=== PATIENT | female | born 1965 | race Asian ===

== ENCOUNTER → 2021-06-06 | Outpatient (CLI) | payer OTHER | LOC: SJCVCIMAG 10:51 | PROVIDERS: ATTEND Internal Medicine Cardiovascular Disease | DX: I34.0 Nonrheumatic mitral (valve) insufficiency (principal); I48.91 Unspecified atrial fibrillation; I10 Essential (primary) hypertension; E78.5 Hyperlipidemia, unspecified ==

== ENCOUNTER → 2021-09-26 | Outpatient (CLI) | payer OTHER ==
[~2021-09-26] MED LIST: ASA81BEC PO; FAMOTIDINE 40 M40 M1 PO; FLECAINIDE ACET50 M1 PO; LIPITOR20 MG PO; NORVASC5 MG PO; TOPROL XL25 MG PO; XARELTO20 MG PO
[2021-09-26 09:34] LABS: ABSOLUTE NEUTROPHILS 2.7 thou/uL (1.4-8.2); BASOPHILS 0.9 % (0.0-2.0); EOSINOPHILS 2.9 % (0.0-3.0); HEMATOCRIT 38.6 % (37.0-47.0); HEMOGLOBIN 12.8 gm/dL (12.0-15.0); LYMPHOCYTES 30.3 % (24.0-44.0); MCH 29.4 pg (26.0-34.0); MCHC 33.3 g/dL (28.0-37.0); MCV 88.2 fL (80.0-100.0); MONOCYTES 6.3 % (1.0-8.0); PLATELET COUNT 248 thou/uL (150-400); POLYS 59.6 % (36.0-66.0); RBC 4.37 mil/uL (4.20-5.00); RDW 14.5 % (10.5-14.5); WBC 4.4 thou/uL (4.0-11.0)
[2021-09-26 09:54] LABS: CALCIUM 9.1 mg/dL (8.5-10.1); CREATININE 0.9 mg/dL (0.6-1.0); POTASSIUM 4.5 mmol/L (3.5-5.1); TOTAL BILIRUBIN 0.6 mg/dL (0.2-1.0); TOTAL PROTEIN 7.1 g/dL (6.4-8.2)
== END ==
LOC: CAT
PROVIDERS: ATTEND Internal Medicine Cardiovascular Disease
DX: I48.91 Unspecified atrial fibrillation (principal); Z79.1 Long term (current) use of non-steroidal anti-inflammatories (NSAID)

== ENCOUNTER 2021-09-28 06:40 | Observation (INO) | payer OTHER ==
[~2021-09-28] VITALS: Ht 154.9 cm; Wt 76.7 kg
[2021-09-28 07:30] VITALS: BP 147/72
[2021-09-28 07:32] LABS: ABSOLUTE NEUTROPHILS 2.7 thou/uL (1.4-8.2); BASOPHILS 0.5 % (0.0-2.0); EOSINOPHILS 3.2 % (0.0-3.0); HEMATOCRIT 38.8 % (37.0-47.0); HEMOGLOBIN 12.7 gm/dL (12.0-15.0); LYMPHOCYTES 29.3 % (24.0-44.0); MCH 29.1 pg (26.0-34.0); MCHC 32.7 g/dL (28.0-37.0); MCV 88.9 fL (80.0-100.0); MONOCYTES 5.8 % (1.0-8.0); PLATELET COUNT 232 thou/uL (150-400); POLYS 61.2 % (36.0-66.0); RBC 4.36 mil/uL (4.20-5.00); RDW 14.3 % (10.5-14.5); WBC 4.4 thou/uL (4.0-11.0)
[2021-09-28] MEDS ORDERED: NORVASC5 MG PO (07:36)
[2021-09-28] MEDS ORDERED: LIPITOR20 MG PO (07:37)
[2021-09-28] MEDS ORDERED: ASA81BEC PO (07:37)
[2021-09-28] MEDS ORDERED: FAMOTIDINE 40 M40 M1 PO (07:38)
[2021-09-28] MEDS ORDERED: FLECAINIDE ACET50 M1 PO (07:38)
[2021-09-28] MEDS ORDERED: TOPROL XL25 MG PO (07:39)
[2021-09-28] MEDS ORDERED: XARELTO20 MG PO (07:40)
[2021-09-28 07:49] LABS: CALCIUM 9.1 mg/dL (8.5-10.1); CREATININE 0.9 mg/dL (0.6-1.0); POTASSIUM 4.3 mmol/L (3.5-5.1)
[2021-09-28 07:53] LABS: ALBUMIN 3.8 g/dL (3.4-5.0); TOTAL BILIRUBIN 0.7 mg/dL (0.2-1.0); TOTAL PROTEIN 6.9 g/dL (6.4-8.2)
[2021-09-28 08:03] LABS: APTT 26.8 Seconds (24.5-32.8)
[2021-09-28 14:55] VITALS: BP 136/70
[2021-09-28 15:15] VITALS: BP 122/71
[2021-09-28 16:00] VITALS: BP 122/71
[2021-09-28 20:15] VITALS: BP 128/77
--- NOTE | 2021-09-28 22:08 | NUR ---
PT TO UNIT FROM BUSINESS SYSTEMS ANALYST, ORIENTED TO UNIT AND CALL LIGHT, WELL HOB DEGREE AND BEDREST, PT VERBALLY UNDERSTOOD. PT SITE HAD A SHADOW THAT BECAME THE ENTIRE SITE, PRESSURE WAS HELD, DR. WORTHY INFORMED, XARELTO ORDERED TO START AT 2000 NOW, BEDREST EXTENDED BY 2 HOURS. PT WAS EDUCATED ON NEW ORDERS, PT VERBALLY UNDERSTOOD. SITE SHOWS NO NEW SIGNS OF SHADOWING.
[2021-09-29 04:45] VITALS: BP 109/66; BP 137/88
--- NOTE | 2021-09-29 06:37 | NUR ---
PATIENT AAOX4 WATCHING TV. HAD A VERY GOOD EVENING. WAS ABLE TO AMBULATE WITH MINIAL ASSISTANCE. NO S/S OF BLEEDING NOR HEMATOMA FORMATOPN AT R GROIN INSERTION SITE. VSS. COMPLIANT WITH ALL TREATMENT. NO COMPLAINTS OF PAIN. WILL CONTINUE TO MONITOR FOR CHANGES IN STATUS.
[2021-09-29 07:05] VITALS: BP 122/67
[2021-09-29 11:06] VITALS: BP 122/67
--- NOTE | 2021-09-29 11:38 | NUR ---
ASESSMENT CHARTED - MEDS PER [facility] - MANNY DIET AND FLUIDS. NO CO'S OF NAUSEA. UP AD NICHOL IN ROOM - GIVEN TORADOL X 1 DOSE FOR CO'S OF PAIN WITH INSPIRATION - WITH GOOD EFFECT. HOME THIS AM - INSTRUTION RE HOME MEDS/ CARE AND FOLLOW UP GIVEN TO PATIENT AND SPOUSE - STATED UNDERSTANDING OF INSTRUCTION GIVEN. HOME VIA PVT VEHICLE ACCOMAP BY SPOUSE. NO CO'S AT TIME OF D/C.
--- NOTE | 2021-10-01 09:03 | P ---
[facility] [place] [address] PROCEDURE REPORT Name: DOE RODRIGUEZ Room #: 210-[facility] Noelle MBob#: [id number] Admission: 09/28/21 Attend Phys: Rohan Gan MD Discharge: 09/29/21 Date of : 61 Report #: [id number] THIS REPORT FOR: cc: Jacquie Mcmullen MD,Jacquie Gan,Rohan Barrow MD ~ DATE OF SERVICE: 09/28/2021 PREOPERATIVE DIAGNOSIS: Atrial fibrillation. POSTOPERATIVE DIAGNOSIS: Atrial fibrillation. PROCEDURES PERFORMED: 1. Atrial fibrillation ablation, CPT code 31025. 2. 3D mapping, CPT code 98802. 3. Intracardiac echo, CPT code 88320. ANESTHESIA: The patient underwent general anesthesia with no anesthesia related complications. DESCRIPTION OF PROCEDURE: The patient underwent informed consent, she was brought to the EP laboratory in a fasting and sedated state and placed under general anesthesia. I injected lidocaine at the right groin and obtained access to the right femoral vein x3, placing an 8, 9 and 7-Bahamian short sheath using the modified Seldinger technique. Under fluoroscopy, decapolar catheter was placed easily in the coronary sinus, ICE catheter was placed in the right atrium. At baseline, the patient was in sinus rhythm. The patient was systemically heparinized. Transseptal was performed using an SL1 sheath and a Woody needle, which was straightforward. I exchanged it for the cryosheath and placed the Lasso catheter in the left atrium and a 3D geometry of the left atrium was created. Next, the pulmonary veins were isolated. The left superior pulmonary vein underwent 3-4 minute freezes which resulted in isolation during the third freeze. The left inferior pulmonary vein underwent a 4-minute freeze and was noted to be isolated. The right superior pulmonary vein underwent a 4-minute freeze followed by ____ second freeze and isolated at 68 seconds during the second freeze. Right inferior pulmonary vein underwent a 3-minute followed by 4-minute freeze which did not result in isolation. Repositioning of the balloon, I got better temps and this third freeze of 3 minutes' duration resulted in isolation. Post-ablation, there was evidence of isolation of all 4 pulmonary veins. The patient received systemic protamine and once ACT was within acceptable range, catheters and sheaths were pulled. Hemostasis obtained. [facility] [address] [place] [address] PROCEDURE REPORT Name: DOE RODRIGUEZ Room #: [facility] Noelle Bernard#: [id number] Admission: 09/28/21 Attend Phys: Rohan Gan MD Discharge: 09/29/21 Date of : 61 Report #: [id number] CONCLUSION: Successful AFib ablation with isolation of the pulmonary veins. <ELECTRONICALLY SIGNED> By: Rohan Gan MD 10/01/21 0903 [id number] 27 Rohan Gan MD /nt
== END 2021-09-29 11:29 | disposition home or self-care (01) ==
LOC: CATH → 2N 06:45 → CATH 08:49 → 2N 09-29 11:29
PROVIDERS: ADMIT Internal Medicine Cardiovascular Disease; ATTEND Internal Medicine Cardiovascular Disease
DX: I48.0 Paroxysmal atrial fibrillation (principal); Z20.822 Contact with and (suspected) exposure to COVID-19; E78.5 Hyperlipidemia, unspecified; R33.9 Retention of urine, unspecified; I10 Essential (primary) hypertension; Z79.82 Long term (current) use of aspirin; Z79.899 Other long term (current) drug therapy
CPT/HCPCS: 62110; 62900; 65020; 65040; 70005